=== PATIENT | female | born 1950 ===

== ENCOUNTER 2022-03-21 05:25 | Day surgery (SDC) | payer OTHER | END 2022-03-21 14:35 | disposition home or self-care (01) | LOC: CIR.AMB 05:25 | PROVIDERS: ATTEND Obstetrics & Gynecology | DX: C54.1 Malignant neoplasm of endometrium (principal); Z20.822 Contact with and (suspected) exposure to COVID-19; E78.5 Hyperlipidemia, unspecified; F17.210 Nicotine dependence, cigarettes, uncomplicated ==